=== PATIENT | female | born 1985 | race Caucasian/White ===

== ENCOUNTER 2020-12-24 07:58 | Emergency (ER) | payer MEDICAID ==
[~2020-12-24] VITALS: Ht 167.6 cm; Wt 70.9 kg
[2020-12-24 08:06] VITALS: BP 114/62
== END 2020-12-24 08:48 | disposition home or self-care (01) ==
LOC: EMS 08:03
DX: N93.9 Abnormal uterine and vaginal bleeding, unspecified (principal); Z32.02 Encounter for pregnancy test, result negative
CPT/HCPCS: 99281; Z7502